=== PATIENT | female | born 1995 | race Two or more races ===

== ENCOUNTER 2016-07-28 14:24 | Outpatient (CLI) | payer MEDICAID | END 2016-07-28 14:25 | disposition home or self-care (01) | DX: Z36 Encounter for antenatal screening of mother (principal) ==

== ENCOUNTER 2022-04-11 22:07 | Emergency (ER) | payer SELFPAY ==
[2022-04-11 22:35] LABS: RAPID STREP SCREEN Negative (Negative)
--- NOTE | 2022-04-12 00:50 | ED Physician Documentation ---
PD HPI HEENT - Stated complaint Stated Complaint: SORE THROAT - Chief complaint Chief Complaint: Heent - History obtained from History obtained from: Patient - History of Present Illness Timing - onset: How many minutes ago, How many months ago (1) Location: Right ear, Left ear Associated symptoms: No: Fever - Additional information Additional information: [place] Citizen-speaking only, friend in room translating with fluency. Patient c/o one month of sore throat, bilateral ear pain, ringing in ears. Also c/o 2-3 weeks of burning dysuria. No PMD. Review of Systems Constitutional: denies: Fever Ears: reports: Ear pain, Tinnitus/ringing Throat: reports: Sore throat Respiratory: denies: Cough GI: denies: Abdominal Pain : reports: Dysuria. denies: Now [facility] PD PAST MEDICAL HISTORY - Present Medications Home Medications: Ambulatory Orders Medication Instructions Recorded Confirmed Amox/Clav 875/125 [Augmentin 1 tablet PO Q12H 10 Days #20 tablet 04/12/22 875/125 Tab] - Allergies Allergies/Adverse Reactions: Allergies Allergy/AdvReac Type Severity Reaction Status Date / Time No Known Drug Allergies Allergy Verified 04/11/22 22:20 PD ED PE NORMAL - Vitals Vital signs reviewed: Yes - General General: Alert and oriented X 3, No acute distress, Well developed/nourished - HEENT HEENT: Moist mucous membranes, Pharynx benign - Neck Neck: Supple, no meningeal sign - Respiratory Respiratory: No respiratory distress, Clear bilaterally - Abdomen Abdomen: Soft, Non tender PD ED PE EXPANDED - HEENT HEENT: R TM dull, L TM red Results - Vitals Vitals: Oxygen O2 Source Room air - Labs Labs: Microbiology 04/12/22 01:15 Urine Culture - Final Urine,Clean Catch Escherichia Coli 04/11/22 22:14 Group A Strep Throat Culture - Final Throat MIXED OROPHARYNGEAL SREE PRESENT. NO BETA STREP PRESENT IN CULTURE. Laboratory Tests 04/11/22 04/12/22 22:14 01:15 Urine Color LT. YELLOW Urine Clarity SL. CLOUDY Urine pH 6.0 Ur Specific [place] 1.015 Urine Protein NEGATIVE Urine Glucose (UA) >=1000 H Urine Ketones NEGATIVE Urine Occult Blood NEGATIVE Urine Nitrite POSITIVE H Urine Bilirubin NEGATIVE Urine Urobilinogen 0.2 (NORMAL) Ur Leukocyte Esterase NEGATIVE Urine RBC None Seen Urine WBC 0-3 Ur Squamous Epith Cells RARE Squamous Urine Bacteria Many H Ur Microscopic Review INDICATED Urine Culture Comments INDICATED Group A Strep Rapid Negative PD MEDICAL DECISION MAKING - ED course Complexity details: reviewed results, re-evaluated patient, considered differential, d/w patient ED course: Patient has multiple c/o which are s/o pharyngitis with bilateral otitis (left TM erythema although right TM is clear/dull). I explained that I would prescribe an antibiotic for the throat and ear infection and give a one-time dose of steroid (decadron) to help with the pain and swelling of the throat. It was on this reevaluation and preparation for d/c home that she first mentioned the burning dysuria (noted in HPI), which she says has been for two or three weeks, possibly a month. I explained that the antibiotic I would be prescribing would provide coverage for most causes of urinary tract infection, but she says she can give a sample and wants to have the urine tested and will wait for result; this is at patient's discretion and contributed significantly to her length of stay. I did not feel it was necessary, though reasonable, to undertake urinalysis for the aforementioned reason (will cover with abx), but could be helpful if positive and culture indicates a different antibiotic. Respiratory PCR (nasal viral) is negative for viruses tested Departure - Departure Disposition: 01 Home, Self Care Clinical Impression: Otitis media Condition: Good Instructions: ED Otitis Media Acute Adult Prescriptions: Amox/Clav 875/125 [Augmentin 875/125 Tab] 1 tablet PO Q12H 10 Days #20 tablet Print Language: [place] Citizen Comments: You have a left ear infection and an antibiotic has been prescribed for this. The antibiotic has been called in to the [facility] pharmacy in [place]. There were some bacteria found in your urine sample, which might be due to an early urinary tract infection. The antibiotic prescribed for the ear infection should also work on urinary tract infection Discharge Date/Time: 04/12/22 03:02
[2022-04-12 01:28] LABS: BILIRUBIN,URINE NEGATIVE (NEGATIVE); GLUCOSE, URINE (UA) >=1000 mg/dL (NEGATIVE); KETONES,URINE (UA) NEGATIVE (NEGATIVE); LEUKOCYTE ESTERASE, URINE NEGATIVE (NEGATIVE); NITRITE,URINE POSITIVE (NEGATIVE); OCCULT BLOOD,URINE NEGATIVE (NEGATIVE); PROTEIN,URINE NEGATIVE (NEGATIVE); UROBILINOGEN,URINE 0.2 (NORMAL) E.U./dL (NORMAL)
[2022-04-12 01:35] LABS: CLARITY,URINE SL. CLOUDY (CLEAR)
[2022-04-12 01:50] LABS: BACTERIA,URINE Many /HPF (None Seen); RBC,URINE None Seen /HPF (0-5); SQUAMOUS EPITHELIAL CELL,UR RARE Squamous (<= Few); WBC,URINE 0-3 /HPF (0-5)
[2022-04-12] MEDS ORDERED: DEXAMETHASONE 10 MG/ML VIAL PO STA (02:53)
[2022-04-12] MEDS ORDERED: AMOX/CLAV 875 MG/125 MG TABLET PO STA (02:53)
[2022-04-12] MEDS ORDERED: CHERRY SYRUP 10 ML UDC PO ONE (02:53)
[2022-04-12 03:03] VITALS: BP 112/65
== END 2022-04-12 03:02 | disposition home or self-care (01) ==
LOC: ED 22:07
DX: H66.92 Otitis media, unspecified, left ear (principal); R82.71 Bacteriuria; R30.0 Dysuria
CPT/HCPCS: 81001; 87070; 87086; 87181; 87430; 99282; 99283; A9270; 81003

== ENCOUNTER 2023-01-21 20:52 | Emergency (ER) | payer BC, MEDICAID ==
[2023-01-21 21:14] LABS: BASOPHILS % (AUTO) 0.6 %; EOSINOPHILS % (AUTO) 1.7 %; HGB - HEMOGLOBIN 9.9 g/dL (12.0-16.0); LYMPHOCYTES % (AUTO) 56.9 %; MEAN CORPUSCULAR HEMOGLOBIN 28.9 pg (27.0-31.0); MEAN CORPUSCULAR HGB CONC 34.1 g/dL (32.0-36.0); MEAN CORPUSCULAR VOLUME 84.5 fL (81.0-99.0); MEAN PLATELET VOLUME 12.5 fL (7.9-10.8); MONOCYTES % (AUTO) 4.9 %; NEUTROPHILS % (AUTO) 35.8 %; PLT - PLATELET COUNT 209 10^3/uL (130-450); RED BLOOD COUNT 3.43 10^6/uL (4.20-5.40); RED CELL DISTRIBUTION WIDTH 15.2 % (12.0-15.0); WHITE BLOOD COUNT 7.1 x10^3/uL (4.8-10.8)
[2023-01-21 21:15] LABS: VBG HCO3 22.9 mmol/L (23-28); VBG OXYGEN SATURATION 52.8 % (60-80); VBG PH 7.433 (7.31-7.41); VBG PO2 27.2 mmHg (25-47); VBG TOTAL CO2 23.9 mmol/L (24-29)
[2023-01-21] MEDS ORDERED: FAMOTIDINE 20 MG/2 ML VIAL IVP STA (21:15)
[2023-01-21] MEDS ORDERED: ONDANSETRON 4 MG/2 ML VIAL IVP STA (21:15)
[2023-01-21] MEDS ORDERED: MORPHINE 2 MG/ML CARPUJECT IVP STA (21:15)
[2023-01-21 21:20] LABS: ABNORMAL LYMPHS % (MANUAL) 0 %
[2023-01-21 21:25] LABS: ALBUMIN 4.2 g/dL (3.2-5.5); ALBUMIN/GLOBULIN RATIO 1.4 (1.0-2.2); ALKALINE PHOSPHATASE 79 IU/L (42-121); ALT ALANINE AMINOTRANSFERASE 12 IU/L (10-60); AST ASPARTATE AMINOTRANSFERASE 19 IU/L (10-42); BILIRUBIN,TOTAL 0.3 mg/dL (0.2-1.0); BUN - BLOOD UREA NITROGEN 22 mg/dL (6-20); CALCIUM 9.4 mg/dL (8.5-10.3); CARBON DIOXIDE - CO2 25 mmol/L (21-32); CHLORIDE 102 mmol/L (101-111); CREATININE 0.5 mg/dL (0.6-1.3); GFR - MDRD 146 (>89); GLUCOSE 102 mg/dL (74-104); LIPASE 50 U/L (11-82); POTASSIUM 3.7 mmol/L (3.5-4.5); SODIUM 135 mmol/L (135-145); TOTAL PROTEIN 7.3 g/dL (6.4-8.9)
[2023-01-21 21:38] LABS: KETONES, SERUM (ACETEST) NEGATIVE (NEGATIVE)
[2023-01-21 21:44] LABS: BAND NEUTROPHILS % (MANUAL) 1 %; LYMPHOCYTES # (MANUAL) 3.5 10^3/uL (1.5-3.5); LYMPHOCYTES % (MANUAL) 38 %; MONOCYTES # (MANUAL) 0.2 10^3/uL (0.0-1.0); NEUTROPHILS # (MANUAL) 3.4 10^3/uL (1.5-6.6); RBC MORPHOLOGY (MULTIPLE) NORMAL APPEARANCE (NORMAL); REACTIVE LYMPHS % (MANUAL) 11 %
[2023-01-21 21:45] LABS: DIFFERENTIAL COMMENT MANUAL DIFFERENTIAL; PLATELET ESTIMATE, MANUAL NORMAL (130-450,000) (NORMAL); PLATELET MORPHOLOGY NORMAL APPEARANCE (NORMAL)
[2023-01-21 21:54] LABS: BILIRUBIN,URINE NEGATIVE (NEGATIVE); CLARITY,URINE HAZY (CLEAR); GLUCOSE, URINE (UA) NEGATIVE (NEGATIVE); KETONES,URINE (UA) NEGATIVE (NEGATIVE); LEUKOCYTE ESTERASE, URINE SMALL (NEGATIVE); NITRITE,URINE NEGATIVE (NEGATIVE); OCCULT BLOOD,URINE LARGE (NEGATIVE); PROTEIN,URINE TRACE mg/dL (NEGATIVE); UROBILINOGEN,URINE 0.2 (NORMAL) E.U./dL (NORMAL)
[2023-01-21 22:09] LABS: HCG UR QUAL NEGATIVE
[2023-01-21 22:13] LABS: BACTERIA,URINE Many /HPF (None Seen); SQUAMOUS EPITHELIAL CELL,UR RARE Squamous (<= Few)
--- NOTE | 2023-01-21 23:08 | XRAY Report ---
PROCEDURE: Chest 1 View X-Ray INDICATIONS: soa, epigastric pain TECHNIQUE: One view of the chest was acquired. COMPARISON: None. FINDINGS: Surgical changes and devices: None. Lungs and pleura: No pleural effusions or pneumothorax. Lungs are clear. Mediastinum: Mediastinal contours appear normal. Heart size is normal. Bones and chest wall: No suspicious bony lesions. Overlying soft tissues appear unremarkable. IMPRESSION: No acute cardiopulmonary process. Reviewed by: Adebayo Alexis on 01/21/2023 11:07 PM PDT Approved by: Adebayo Alexis on 01/21/2023 11:07 PM PDT Station ID: [id number]
[2023-01-21] MEDS ORDERED: cefTRIAXone 1 GM VIAL IVP STA (23:12)
[2023-01-21] MEDS ORDERED: SODIUM CHLORIDE 0.9% 1,000 ML IV STA (23:13)
--- NOTE | 2023-01-21 23:16 | ED Physician Documentation ---
History of Present Illness - Stated complaint Stated Complaint: SOA - Chief complaint Chief Complaint: Abd Pain - History obtained from History obtained from: Patient - Additonal information Additional information: 27yF who speaks only a regional dialect from [place] (translation serviced provided from our telugu speaking RN Miesha to patient's spouse who translates to the dialect) p/w epigastric severe pain today with limited information given difficulty in translation. upon chart review patient was here in may with similar symptoms, acute urinary retention of unknown origin, p ossible uti. she denies fever, vomiting, diarrhea today. patient has diet controlled diabetes. note she has issues with constipation and normally has BM only once or twice weekly. 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 - Present Medications Home Medications: Ambulatory Orders Medication Instructions Recorded Confirmed Blood Sugar Diagnostic [Glucometer 1 each MC TIDWM #120 strip 05/03/22 Strips] Blood-Glucose Meter [Glucometer] 1 each MC DAILY #1 each 05/03/22 glipiZIDE [Glucotrol] 5 mg PO 0730 #30 tablet 05/03/22 levoFLOXacin [Levaquin] 500 mg PO DAILY #22 tablet 05/03/22 metFORMIN [Glucophage] 500 mg PO BIDWM #60 tablet 05/03/22 metroNIDAZOLE [Flagyl] 500 mg PO BID 7 Days #14 tablet 05/03/22 Tamsulosin [Flomax] 0.4 mg PO DAILY #14 cap 06/12/22 levoFLOXacin [Levaquin] 500 mg PO DAILY #14 tablet 06/12/22 Cefpodoxime Proxetil [Vantin] 200 mg PO Q12H #28 tablet 01/21/23 Sennosides/Docusate Sodium 1 each PO QDAC PRN #30 tablet 01/22/23 [Senna-Docusate Sodium Tablet] polyethylene glycoL 3350 [Miralax] 17 gm PO DAILY #30 packet 01/22/23 - Allergies Allergies/Adverse Reactions: Allergies Allergy/AdvReac Type Severity Reaction Status Date / Time No Known Drug Allergies Allergy Verified 01/21/23 21:02 - Social History Does the pt smoke?: No Smoking Status: Never smoker Does the pt drink ETOH?: No Does the pt have substance abuse?: No - Immunizations Immunizations are current?: Yes - POLST Patient has POLST: No PD ED PE NORMAL - Vitals Vital signs reviewed: Yes - General General: Alert and oriented X 3, Other (moderate distress) - HEENT HEENT: Atraumatic, PERRL, EOMI, Moist mucous membranes, Pharynx benign - Neck Neck: Supple, no meningeal sign - Cardiac Cardiac: RRR - Respiratory Respiratory: No respiratory distress, Clear bilaterally - Abdomen Abdomen: Other (ttp epigastrium) - Back Back: No CVA TTP - Extremities Extremities: No deformity Results - Vitals Vitals: Vital Signs - 24 hr 01/21/23 01/21/23 01/21/23 20:59 22:01 22:30 Temperature 36.3 C L Heart Rate 113 H 92 85 Respiratory 11 L 16 16 Rate Blood Pressure 120/94 H 101/74 101/74 O2 Saturation 100 100 100 01/21/23 01/21/23 01/22/23 23:00 23:30 00:00 Temperature Heart Rate 87 92 101 H Respiratory 16 16 16 Rate Blood Pressure 106/77 105/81 H 119/84 H O2 Saturation 100 98 100 01/22/23 01/22/23 01/22/23 00:30 01:07 01:25 Temperature Heart Rate 94 87 93 Respiratory 16 16 16 Rate Blood Pressure 113/86 H 84/61 L 92/69 O2 Saturation 96 100 100 01/22/23 01/22/23 01:37 03:04 Temperature Heart Rate 91 92 Respiratory 16 16 Rate Blood Pressure 100/72 109/82 H O2 Saturation 100 98 Oxygen O2 Source Room air - Labs Labs: Laboratory Tests 01/21/23 01/21/23 01/21/23 21:07 21:07 21:07 WBC 7.1 RBC 3.43 L Hgb 9.9 L Hct 29.0 L MCV 84.5 MCH 28.9 MCHC 34.1 RDW 15.2 H Plt Count 209 MPV 12.5 H Neut # (Auto) Not Reportable Lymph # (Auto) Not Reportable [place] # (Auto) Not Reportable Eos # (Auto) Not Reportable Baso # (Auto) Not Reportable Absolute Nucleated RBC Not Reportable Total Counted 100 Band Neuts % (Manual) 1 Reactive Lymphs % (Man) 11 Abnorm Lymph % (Manual) 0 Nucleated RBC % Not Reportable Neutrophils # (Manual) 3.4 Lymphocytes # (Manual) 3.5 Monocytes # (Manual) 0.2 Eosinophils # (Manual) 0.0 Basophils # (Manual) 0.0 Differential Comment MANUAL DIFFERENTIAL Platelet Estimate NORMAL (130-450,000) Platelet Morphology NORMAL APPEARANCE RBC Morph Micro Appear NORMAL APPEARANCE VBG pH 7.433 H VBG pCO2 35.0 L VBG pO2 27.2 VBG HCO3 22.9 L VBG Total CO2 23.9 L VBG O2 Saturation 52.8 L VBG Base Excess -1.0 Sodium 135 Potassium 3.7 Chloride 102 Carbon Dioxide 25 Anion Gap 8.0 BUN 22 H Creatinine 0.5 L Estimated GFR (MDRD) 146 Glucose 102 Calcium 9.4 Total Bilirubin 0.3 AST 19 ALT 12 Alkaline Phosphatase 79 Total Protein 7.3 Albumin 4.2 Globulin 3.1 Albumin/Globulin Ratio 1.4 Lipase 50 Urine Color Urine Clarity Urine pH Ur Specific [place] Urine Protein Urine Glucose (UA) Urine Ketones Urine Occult Blood Urine Nitrite Urine Bilirubin Urine Urobilinogen Ur Leukocyte Esterase Urine RBC Urine WBC Ur Squamous Epith Cells Urine Bacteria Urine Culture Comments Urine HCG, Qual Serum Ketones NEGATIVE 01/21/23 01/21/23 21:40 21:40 WBC RBC Hgb Hct MCV MCH MCHC RDW Plt Count MPV Neut # (Auto) Lymph # (Auto) [place] # (Auto) Eos # (Auto) Baso # (Auto) Absolute Nucleated RBC Total Counted Band Neuts % (Manual) Reactive Lymphs % (Man) Abnorm Lymph % (Manual) Nucleated RBC % Neutrophils # (Manual) Lymphocytes # (Manual) Monocytes # (Manual) Eosinophils # (Manual) Basophils # (Manual) Differential Comment Platelet Estimate Platelet Morphology RBC Morph Micro Appear VBG pH VBG pCO2 VBG pO2 VBG HCO3 VBG Total CO2 VBG O2 Saturation VBG Base Excess Sodium Potassium Chloride Carbon Dioxide Anion Gap BUN Creatinine Estimated GFR (MDRD) Glucose Calcium Total Bilirubin AST ALT Alkaline Phosphatase Total Protein Albumin Globulin Albumin/Globulin Ratio Lipase Urine Color YELLOW Urine Clarity HAZY Urine pH 7.0 Ur Specific [place] 1.010 Urine Protein TRACE Urine Glucose (UA) NEGATIVE Urine Ketones NEGATIVE Urine Occult Blood LARGE H Urine Nitrite NEGATIVE Urine Bilirubin NEGATIVE Urine Urobilinogen 0.2 (NORMAL) Ur Leukocyte Esterase SMALL H Urine RBC 11-25 H Urine WBC 11-25 H Ur Squamous Epith Cells RARE Squamous Urine Bacteria Many H Urine Culture Comments INDICATED Urine HCG, Qual NEGATIVE Serum Ketones PD Medical Decision Making - ED course ED course: 27yF presents with severe epigastric abdominal pain radiating upward, also with history of urinary retention and uti. patient has uti on labwork today. stable chronic anemia. no signs of dka on labwork. plan to treat with antibiotics, eval for kidney stones or urinary retention, pancreatitis/gallbladder pathology on ct. ct shows constipation and uti. antibiotics sent to pharmacy along with stool regimen. return precautions given. plan to f/u with pcp. Departure - Departure Disposition: Home, Self Care Clinical Impression: UTI (urinary tract infection), Abdominal pain, Constipation Condition: Stable Instructions: Constipation, ED UTI Cystitis Female Prescriptions: polyethylene glycoL 3350 [Miralax] 17 gm PO DAILY #30 packet Sennosides/Docusate Sodium [Senna-Docusate Sodium Tablet] 1 each PO QDAC PRN #30 tablet PRN Reason: Constipation Cefpodoxime Proxetil [Vantin] 200 mg PO Q12H #28 tablet Print Language: Frisian Comments: You were seen in the emergency department for abdominal pain and found to have uti. antibiotics sent electronically to [facility] in [place]. Please follow-up with your primary care provider and return to the emergency department if you have any new or worsening symptoms or other concerns. Usted fue visto en el departamento de emergencias por dolor abdominal y se encontr que linda ITU. Antibiticos enviados electrnicamente a [facility] en [place]. Valorie un seguimiento con correia proveedor de atencin primaria y regrese al departa mento de emergencias si tiene algn sntoma nuevo o que empeora u otras inquietudes. Forms: PCP List
[2023-01-22] MEDS ORDERED: SODIUM CHLORIDE 0.9% 1,000 ML IV ONE (01:08)
[2023-01-22] MEDS ORDERED: iohexoL-300 100 ML VIAL IVP ONE (03:46)
[2023-01-22 04:50] VITALS: BP 109/67; O2SAT 100
--- NOTE | 2023-01-22 10:12 | CT Report ---
PROCEDURE: ABDOMEN/PELVIS W INDICATIONS: epigastric abd pain, hx pyelonephrosis, urinaryret CONTRAST: 90 ML OMNI 300 TECHNIQUE: After the administration of IV contrast, 5 mm thick sections acquired from the diaphragms to the symp hysis. 5 mm thick coronal and sagittal reformats were acquired. For radiation dose reduction, the f ollowing was used: automated exposure control, adjustment of mA and/or kV according to patient size. COMPARISON: 06/11/2022, 04/30/2022 FINDINGS: Image quality: Motion artifact is noted. Lung bases and heart: Unremarkable. Liver: No solid mass. Gallbladder and biliary tree: Within normal limits Spleen: No splenomegaly. Pancreas: No pancreatic ductal dilation. Adrenals: No adrenal nodule. Kidneys and ureters: The kidneys demonstrate normal size and enhance symmetrically. There is moderate right-sided and mild left-sided hydronephrosis. Bowel and peritoneum: No dilated loops of small bowel are seen. However, there is mild hyperenhanceme nt seen of the small bowel loops. A moderate burden of stool can be seen. No significant gastric abnormality is seen. Lymph nodes: No central or retroperitoneal adenopathy. Vessels: No infrarenal aortic aneurysm. PELVIS Reproductive organs: Unremarkable. Bladder: Moderate generalized bladder wall thickening is seen. Pelvic lymph nodes: No pelvic adenopathy by size criteria. Bones: No aggressive osseous abnormality. Other: No significant ventral or inguinal hernia. IMPRESSION: Moderate generalized bladder wall thickening is seen. UTI suspected. There is moderate right-sided and mild left-sided hydronephrosis, which is similar to the prior CT. Enteritis is suspected, with generally hyper enhancement of the small bowel loops. There is a moderate amount of stool seen within the colon. Please correlate with clinical constipatio n. Note: No significant discrepancy from the preliminary report. Reviewed by: Iker Byrne MD on 01/22/2023 9:11 AM TANESHA Approved by: Iker Byrne MD on 01/22/2023 9:11 AM TANESHA Station ID: [id number]
== END 2023-01-22 04:46 | disposition home or self-care (01) ==
LOC: ED 20:52
DX: N39.0 Urinary tract infection, site not specified (principal); K59.00 Constipation, unspecified; E11.9 Type 2 diabetes mellitus without complications
CPT/HCPCS: 36415; 71045; 74177; 80053; 81001; 81025; 82009; 82803; 83690; 85025; 87086; 87181; 96374; 96375; 99283; 99284; Q9967

== ENCOUNTER 2023-09-23 14:21 | Emergency (ER) | payer BC ==
[2023-09-23 14:41] VITALS: O2SAT 100
[2023-09-23 14:49] LABS: BILIRUBIN,URINE NEGATIVE (NEGATIVE); GLUCOSE, URINE (UA) NEGATIVE (NEGATIVE); KETONES,URINE (UA) NEGATIVE (NEGATIVE); LEUKOCYTE ESTERASE, URINE LARGE (NEGATIVE); NITRITE,URINE POSITIVE (NEGATIVE); OCCULT BLOOD,URINE MODERATE (NEGATIVE); PROTEIN,URINE 30 mg/dL (NEGATIVE); UROBILINOGEN,URINE 0.2 (NORMAL) E.U./dL (NORMAL)
[2023-09-23 14:52] LABS: CLARITY,URINE SL. CLOUDY (CLEAR)
[2023-09-23 14:53] LABS: HCG UR QUAL NEGATIVE
[2023-09-23 15:13] LABS: BACTERIA,URINE Moderate /HPF (None Seen); SQUAMOUS EPITHELIAL CELL,UR FEW Squamous (<= Few); WBC,URINE >25 /HPF (0-5)
[2023-09-23 15:15] LABS: BASOPHILS % (AUTO) 0.3 %; EOSINOPHILS % (AUTO) 0.3 %; HCT - HEMATOCRIT 26.7 % (37.0-47.0); HGB - HEMOGLOBIN 8.7 g/dL (12.0-16.0); LYMPHOCYTES # (AUTO) 0.9 10^3/uL (1.5-3.5); LYMPHOCYTES % (AUTO) 9.8 %; MEAN CORPUSCULAR HEMOGLOBIN 27.6 pg (27.0-31.0); MEAN CORPUSCULAR HGB CONC 32.6 g/dL (32.0-36.0); MEAN CORPUSCULAR VOLUME 84.8 fL (81.0-99.0); MEAN PLATELET VOLUME 12.1 fL (7.9-10.8); MONOCYTES # (AUTO) 0.4 10^3/uL (0.0-1.0); MONOCYTES % (AUTO) 4.4 %; NEUTROPHILS # (AUTO) 7.6 10^3/uL (1.5-6.6); NEUTROPHILS % (AUTO) 84.9 %; PLT - PLATELET COUNT 165 10^3/uL (130-450); RED BLOOD COUNT 3.15 10^6/uL (4.20-5.40); RED CELL DISTRIBUTION WIDTH 15.9 % (12.0-15.0)
[2023-09-23] MEDS: KETOROLAC 30 MG/ML VIAL IVP STA (15:18)
[2023-09-23] MEDS: SODIUM CHLORIDE 0.9% 1,000 ML IV STA (15:19)
[2023-09-23 15:39] LABS: ALBUMIN 4.3 g/dL (3.2-5.5); ALBUMIN/GLOBULIN RATIO 1.4 (1.0-2.2); BILIRUBIN,TOTAL 0.4 mg/dL (0.2-1.0); CALCIUM 9.3 mg/dL (8.5-10.3); CREATININE 0.5 mg/dL (0.6-1.3); POTASSIUM 3.6 mmol/L (3.5-4.5); TOTAL PROTEIN 7.3 g/dL (6.4-8.9)
--- NOTE | 2023-09-23 15:58 | ED Physician Documentation ---
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 Daughter also helped with translation.) - Additional information Additional information: Patient is a 28-year-old female presenting for evaluation of dysuria for the past 2 days with left-sided abdominal pain. Denies fever. No nausea or vomiting or diarrhea. Has had clear vaginal discharge. Does not take any current medications. 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 - Present Medications Home Medications: Ambulatory Orders Medication Instructions Recorded Confirmed Cefpodoxime Proxetil [Vantin] 200 mg PO Q12H 10 Days #40 tablet 09/23/23 - Allergies Allergies/Adverse Reactions: Allergies Allergy/AdvReac Type Severity Reaction Status Date / Time No Known Drug Allergies Allergy Verified 09/23/23 14:36 - Social History Does the pt smoke?: No Smoking Status: Never smoker Does the pt drink ETOH?: No Does the pt have substance abuse?: No - Immunizations Immunizations are current?: Yes - POLST Patient has POLST: No PD ED PE NORMAL - General General: No acute distress, Well developed/nourished, Other (Alert) - HEENT HEENT: Atraumatic - Neck Neck: Supple, no meningeal sign - Cardiac Cardiac: RRR, Strong equal pulses - Respiratory Respiratory: No respiratory distress, Clear bilaterally - Abdomen Abdomen: Normal bowel sounds, Soft, Non distended, Other (Mild left lateral abdominal tenderness) - Female Female : Extrusion Technician present (Amelie), Other (Normal external exam; normal appearing cervix, white discharge, no CMT or adnexal tenderness) - Derm Derm: Warm and dry Results - Vitals Vitals: Vital Signs - 24 hr 09/23/23 09/23/23 09/23/23 14:26 14:36 16:36 Temperature 36.5 C 36.5 C 36.5 C Heart Rate 106 H 106 H 88 Respiratory 16 16 16 Rate Blood Pressure 120/73 120/73 120/72 O2 Saturation 100 100 100 Oxygen O2 Source Room air - Labs Labs: Laboratory Tests 09/23/23 09/23/23 09/23/23 14:39 15:05 15:05 WBC 9.0 RBC 3.15 L Hgb 8.7 L Hct 26.7 L MCV 84.8 MCH 27.6 MCHC 32.6 RDW 15.9 H Plt Count 165 MPV 12.1 H Neut # (Auto) 7.6 H Lymph # (Auto) 0.9 L Hart # (Auto) 0.4 Eos # (Auto) 0.0 Baso # (Auto) 0.0 Absolute Nucleated RBC 0.00 Nucleated RBC % 0.0 Sodium 134 L Potassium 3.6 Chloride 102 Carbon Dioxide 25 Anion Gap 7.0 BUN 19 Creatinine 0.5 L Estimated GFR (MDRD) 145 Glucose 95 Calcium 9.3 Total Bilirubin 0.4 AST 17 ALT 13 Alkaline Phosphatase 71 Total Protein 7.3 Albumin 4.3 Globulin 3.0 Albumin/Globulin Ratio 1.4 Lipase 26 Urine Color LIGHT YELLOW Urine Clarity SL. CLOUDY Urine pH 6.0 Ur Specific [place] <=1.005 Urine Protein 30 H Urine Glucose (UA) NEGATIVE Urine Ketones NEGATIVE Urine Occult Blood MODERATE H Urine Nitrite POSITIVE H Urine Bilirubin NEGATIVE Urine Urobilinogen 0.2 (NORMAL) Ur Leukocyte Esterase LARGE H Urine RBC 6-10 H Urine WBC >25 H Ur Squamous Epith Cells FEW Squamous Urine Bacteria Moderate H Ur Microscopic Review INDICATED Urine Culture Comments INDICATED Urine HCG, Qual NEGATIVE C. glabrata (PCR) C. krusei (PCR) Arlette species DNA Chlam trachomat DNA PCR N.gonorrhoeae DNA (PCR) T. vaginalis (PCR) Bact Vaginosis (PCR) 09/23/23 09/23/23 16:21 16:21 WBC RBC Hgb Hct MCV MCH MCHC RDW Plt Count MPV Neut # (Auto) Lymph # (Auto) [place] # (Auto) Eos # (Auto) Baso # (Auto) Absolute Nucleated RBC Nucleated RBC % Sodium Potassium Chloride Carbon Dioxide Anion Gap BUN Creatinine Estimated GFR (MDRD) Glucose Calcium Total Bilirubin AST ALT Alkaline Phosphatase Total Protein Albumin Globulin Albumin/Globulin Ratio Lipase Urine Color Urine Clarity Urine pH Ur Specific [place] Urine Protein Urine Glucose (UA) Urine Ketones Urine Occult Blood Urine Nitrite Urine Bilirubin Urine Urobilinogen Ur Leukocyte Esterase Urine RBC Urine WBC Ur Squamous Epith Cells Urine Bacteria Ur Microscopic Review Urine Culture Comments Urine HCG, Qual C. glabrata (PCR) NEGATIVE C. krusei (PCR) NEGATIVE Arlette species DNA NEGATIVE Chlam trachomat DNA PCR NEGATIVE N.gonorrhoeae DNA (PCR) NEGATIVE T. vaginalis (PCR) NEGATIVE TNP Bact Vaginosis (PCR) NEGATIVE PD Medical Decision Making - ED course Complexity details: reviewed results, re-evaluated patient, d/w patient ED course: Pt with UTI symptoms and reported L flank pain. VSS. No fever. CBC, chemistries reviewed. Hgb 8.7 - slowly decreasing over years. No symptoms of GI bleed. UA suggests infection and pt started on antibiotics. No findings of PID on pelvic exam. Pt feeling better after IV fluids and toradol. Repeat abdominal exam benign. Pt and daughter counseled on treatment plan with antibiotics, need for follow up regarding anemia, and return precautions for any worsening. Departure - Departure Disposition: 01 Home, Self Care Clinical Impression: UTI (urinary tract infection), Anemia Condition: Stable Instructions: ED UTI Cystitis Female Prescriptions: Cefpodoxime Proxetil [Vantin] 200 mg PO Q12H 10 Days #40 tablet Print Language: Irish Comments: Your testing today shows that you have a urine infection. You are also anemic. Please have close follow-up with your primary care provider for further evaluation of your anemia. I sent your prescription to [facility] in [place]. Return to the emergency department with any worsening symptoms. Forms: PCP List Discharge Date/Time: 09/23/23 17:28
[2023-09-23] MEDS: cefTRIAXone 1 GM in SODIUM CHLORIDE 0.9% MINIBAG 100 ML IV STA (15:59)
[2023-09-23 17:35] VITALS: BP 120/72
[2023-09-23 19:22] LABS: CHLAMYDIA TRACHOMATIS DNA NEGATIVE (NEGATIVE); NEISSERIA GONORRHOEAE DNA NEGATIVE (NEGATIVE)
[2023-09-23 19:39] LABS: BACTERIAL VAGINOSIS DNA NEGATIVE (NEGATIVE); CANDIDA GLABRATA DNA NEGATIVE (NEGATIVE); CANDIDA GROUP DNA NEGATIVE (NEGATIVE); CANDIDA KRUSEI DNA NEGATIVE (NEGATIVE); TRICHOMONAS VAGINALIS DNA NEGATIVE (NEGATIVE)
== END 2023-09-23 17:28 | disposition home or self-care (01) ==
LOC: ED 14:21
DX: N39.0 Urinary tract infection, site not specified (principal); D64.9 Anemia, unspecified
CPT/HCPCS: 36415; 80053; 81001; 81003; 81025; 81514; 83690; 85025; 87086; 87181; 87491; 87591; 87661; 96365; 96375; 99283